=== PATIENT | male | born 1970 | race Caucasian/White ===

== ENCOUNTER → 2021-02-20 03:55 | Outpatient (CLI) | payer BC, SELFPAY ==
[2021-02-20 20:06] LABS: SARS-CoV-2 RNA PCR Negative
== END ==
PROVIDERS: PCP Family Medicine; Visit Provider Internal Medicine Gastroenterology
DX: Z01.812 Encounter for preprocedural laboratory examination (principal); Z20.822 Contact with and (suspected) exposure to COVID-19
CPT/HCPCS: C9803; U0003; U0005

== ENCOUNTER 2021-02-23 01:51 | Day surgery (SDC) | payer BC, SELFPAY ==
[2021-02-14 11:59] VITALS: BMI 29.7
[2021-02-23 06:38] VITALS: BP 145/97; PULSE 61; RESP 18; TEMP 35.7; O2SAT 100; BMI 27.6
[2021-02-23] MEDS: LACTATED RINGERS 1,000 ML 150 ML IV CONT (06:52)
--- NOTE | 2021-02-23 07:51 | WPDANESEPPF ---
Anes - Initial Pre Proc Eval Procedure: Operation Date: 02/23/21 08:00 Proposed Procedures p Screening Colonoscopy - John Blandon MD Date/Time: 02/23/21 07:51 Surgeon: John Blandon MD Pre Op Diagnosis: neoplasm screening Patient Data Age: 50 Gender: M Height: 5 ft 7 in Weight: 80.1 kg Last Vital Signs Temp 96.3 F L 02/23/21 06:38 Pulse 61 02/23/21 06:38 Resp 18 02/23/21 06:38 BP 145/97 H 02/23/21 06:38 Pulse Ox 100 02/23/21 06:38 Allergies Allergy/AdvReac Type Severity Reaction Status Date / Time lisinopril Allergy Unknown cough Verified 02/23/21 06:37 Home Medications Medication Instructions Recorded Confirmed Type irbesartan 75 mg tablet 75 mg PO DAILY 11/02/19 02/23/21 History atorvastatin 10 mg tablet 10 mg PO DAILY #90 tablet 05/03/20 02/23/21 Rx sodium,potassium,mag sulfates 17.5 See Rx Instructions PO .COMPLEX 12/07/20 02/23/21 Rx gram-3.13 gram-1.6 gram oral soln #354 ml multivit with min-folic acid 1 tablet PO DAILY 02/14/21 02/23/21 History [Adult One Daily Multivitamin] Patient hx anesthesia problems: none Family hx anesthesia problems: none PMFSH Past Medical History Medical History (Updated 02/23/21 @ 07:51 by Kyree Villa MD) Essential (primary) hypertension Mixed hyperlipidemia Surgical History Surgical History H/O hernia repair (~2014) H/O vasectomy Family History Family History Sibling Hypertension Father Family history of cardiovascular disease Hypertension Family history of elevated blood lipids Carcinoma of colon Mother Family history of cardiovascular disease Hypertension Family history of elevated blood lipids Family history of malignant neoplasm of thyroid Grandparent Diabetes mellitus Family history of mental disorder Social History Social History Smoking status: Never smoker Alcohol intake: current Drinks per week: 12 Living arrangements: with family Spiritual care concerns: No Anes - Eval Final PreProcedure Day of Procedure 02/23/21 07:51 Patient weight: overweight Heart: regular rate and rhythm Lungs: clear to auscultation Airway: Mallampati scale class II Neurological: alert and oriented Last oral intake: >/= 8 hours ASA classification: II Emergent: no Anesthetic plan: proceed Anesthesia type and monitoring: general GIVS and standard monitoring Informed Consent: The patient's anesthetic plan and its attendant risks and benefits were discussed with the patient/family/POA. Questions were solicited and answers provided to the satisfaction of the patient/family/POA.
--- NOTE | 2021-02-23 07:57 | PM.HPGS ---
History of Present Illness History of Present Illness Consent: Risks, benefits, and alternatives have been discussed and questions answered. Patient agrees to proceed with procedure. Chief complaint: neoplasm screening Narrative: Jeffry Burr is a 50 year old male here for first screening colonoscopy Review of Systems Constitutional: Constitutional: Denies headache(s) and Denies weakness Eyes: Eyes: Denies blurry vision ENT: Reports Normal hearing present, Denies headache(s) and Denies neck pain Cardiovascular: Cardiovascular: Denies chest pain and Denies dyspnea Respiratory: Respiratory: Denies dyspnea Gastrointestinal: Gastrointestinal: Reports no additional gastrointestinal complaints Genitourinary: Genitourinary: Denies dysuria Musculoskeletal: Musculoskeletal: Denies neck pain Integumentary/Breasts: Skin/Breast: Denies dry skin Neurologic: Reports Normal hearing present, Denies headache(s) and Denies weakness Psychiatric: Psychiatric: Denies anxiety Endocrine: Endocrine: Denies change in body appearance Hematologic/Lymphatic: Hematologic/Lymphatic: Denies easy bleeding Allergic/Immunologic: Allergic/Immunologic: Denies urticaria PMF Past Medical History Medical History (Updated 02/23/21 @ 07:51 by Kyree Villa MD) Essential (primary) hypertension Mixed hyperlipidemia Surgical History Surgical History H/O hernia repair (~2014) H/O vasectomy Family History Family History Sibling Hypertension Father Family history of cardiovascular disease Hypertension Family history of elevated blood lipids Carcinoma of colon Mother Family history of cardiovascular disease Hypertension Family history of elevated blood lipids Family history of malignant neoplasm of thyroid Grandparent Diabetes mellitus Family history of mental disorder Social History Social History Smoking status: Never smoker Alcohol intake: current Drinks per week: 12 Living arrangements: with family Spiritual care concerns: No Meds Home Medications and Allergies Home Medications Medication Instructions Recorded Confirmed Type irbesartan 75 mg tablet 75 mg PO DAILY 11/02/19 02/23/21 History atorvastatin 10 mg tablet 10 mg PO DAILY #90 tablet 05/03/20 02/23/21 Rx sodium,potassium,mag sulfates 17.5 See Rx Instructions PO .COMPLEX 03/04/21 05/21/21 Rx gram-3.13 gram-1.6 gram oral soln #354 ml multivit with min-folic acid 1 tablet PO DAILY 02/14/21 02/23/21 History [Adult One Daily Multivitamin] Allergies Allergy/AdvReac Type Severity Reaction Status Date / Time lisinopril Allergy Unknown cough Verified 02/23/21 06:37 Vital Signs Vital Signs - 24 hr 02/23/21 06:38 Temperature 96.3 F L Pulse Rate 61 Respiratory Rate 18 Blood Pressure 145/97 H Pulse Oximetry 100 Exam Const: General: comfortable and no acute distress HENMT: General nose exam: Normal nares present Eyes: General: appearance normal, both eyes and all related structures Neck: Neck: no JVD Resp: Auscultation: clear to auscultation bilaterally Cardio: Rate: regular rate Rhythm: regular rhythm GI: Inspection: non-distended GI Palp: Yes Soft to palpation Skin: General skin exam: normal color Neuro: General: gait normal Speech: normal speech Extrem: General: normal to inspection Psych: Mental Status: mental status grossly normal Assessment and Plan Assessment and plan (1) Screening for colon cancer: Code(s): Z12.11 - Encounter for screening for malignant neoplasm of colon Status: Acute Assessment and Plan: colonoscopy
[2021-02-23 08:09] VITALS: BP 89/55; PULSE 63; RESP 18; O2SAT 100
[2021-02-23 08:19] VITALS: BP 112/68; PULSE 62; RESP 18; O2SAT 100
[2021-02-23 08:29] VITALS: BP 122/80; PULSE 62; RESP 16; O2SAT 100
== END 2021-02-23 08:40 | disposition home or self-care (01) ==
PROVIDERS: PCP Family Medicine; Visit Provider Internal Medicine Gastroenterology
PROC: 0DJD8ZZ Inspection of Lower Intestinal Tract, Via Natural or Artificial Opening Endoscopic (ICD-10-PCS; CPT 45378; principal; 2021-02-23 08:00)
DX: Z12.11 Encounter for screening for malignant neoplasm of colon (principal); K64.8 Other hemorrhoids; I10 Essential (primary) hypertension; E78.2 Mixed hyperlipidemia
CPT/HCPCS: 45378; J2001; J2704; J7120

== ENCOUNTER 2022-03-15 16:48 | Emergency (ER) | payer OTHER, SELFPAY ==
--- NOTE | 2022-03-15 16:51 | ED.DENTAL ---
HPI - Dental/Oral General Chief complaint: Dental/Oral Stated complaint: toothache Time Seen by Provider: 03/15/22 17:00 Source: patient Mode of arrival: ambulatory Limitations: no limitations History of Present Illness HPI Narrative: Mr. Burr is a 51-year-old male patient presenting to the clinic today with complaints of a tooth ache. He reports that this has been going on for approximately 1 week. He reports that he had a root canal completed a couple weeks ago and is waiting to have it finished and was supposed to have it finished last week however the dentist canceled on him and he is rescheduled for next week. He states that the swelling has occurred over the last week and he thinks he has a total abscess to the right upper second back molar. Has swelling over the left maxillary sinuses. He denies any fever or chills. Related Data Allergies Allergy/AdvReac Type Severity Reaction Status Date / Time lisinopril AdvReac Unknown cough Verified 03/15/22 17:21 Review of Systems Review of Systems: Pertinent positives per HPI. Patient denies any fever, chills, rash, headache, visual changes, dizziness, cough, runny nose, sore throat, shortness of breath, chest pain, palpitations, nausea, vomiting, diarrhea, constipation, abdominal pain, or any urinary issues. [facility] Past Medical History Medical History Essential (primary) hypertension Mixed hyperlipidemia Surgical History Surgical History H/O hernia repair (~2014) H/O vasectomy Family History Family History Sibling Hypertension Father Family history of cardiovascular disease Hypertension Family history of elevated blood lipids Carcinoma of colon Mother Family history of cardiovascular disease Hypertension Family history of elevated blood lipids Family history of malignant neoplasm of thyroid Grandparent Diabetes mellitus Family history of mental disorder Social History Social History Alcohol intake: current Drinks per week: 12 Spiritual care concerns: No Comments At the time of my signature, I reviewed and agree with the nursing past medical, surgical, social, and family history. There is no relevant family history pertinent to the patient complaint. Exam Narrative: General: Well-developed, well nourished, in no apparent distress Head: Normocephalic, atraumatic Eyes: Pupils equally round and reactive to light bilaterally, EOM intact, sclera and conjunctive clear, no discharge, lids normal Ears: TMs intact and clear, ear canals clear, no drainage, grossly hearing normal. Nose: Nares patent, no discharge, no inflammation, no sinus tenderness. Mouth: Oropharynx without lesions or masses, poor dentition, MMM. Swelling noted to the gums near the second posterior left upper molar. Tenderness, swelling, and redness to palpation over left maxillary sinuses. Neck: Supple, trachea midline, no enlargement of anterior or posterior cervical nodes, no thyroid masses or goiter palpable. Cardio: Regular rate and rhythm, s1 and s2 normal, no murmur appreciated. Resp: Clear to auscultation bilaterally anteriorly and posteriorly, no rhonchi, rales, wheezing or rubs Course Course Emergency Course: Portions of this record may have been created with voice recognition software. Level of Care: Express Care Visit Vital Signs Vital signs: Vital Signs Temperature 37.5 C 03/15/22 17:03 Pulse Rate 77 03/15/22 17:03 Respiratory Rate 18 03/15/22 17:03 Blood Pressure 141/85 H 03/15/22 17:03 Pulse Oximetry 99 03/15/22 17:03 Oxygen Delivery Room Air 03/15/22 17:03 Temperature 37.5 C 03/15/22 17:03 Pulse Rate 77 03/15/22 17:03 Respiratory Rate 18 03/15/22 17:03 Blood Pressure 141/85 H
[2022-03-15 17:03] VITALS: BP 141/85; PULSE 77; RESP 18; TEMP 37.5; O2SAT 99
== END 2022-03-15 17:26 | disposition home or self-care (01) ==
PROVIDERS: Emergency Provider Nurse Practitioner Family; PCP Family Medicine
DX: K04.7 Periapical abscess without sinus (principal); I10 Essential (primary) hypertension; E78.2 Mixed hyperlipidemia
CPT/HCPCS: 99213; G0463

== ENCOUNTER 2022-12-03 17:32 | Emergency (ER) | payer OTHER, SELFPAY ==
[2022-12-03 17:52] VITALS: BP 140/84; PULSE 60; RESP 18; TEMP 36.3; O2SAT 98
--- NOTE | 2022-12-03 18:23 | ED.GENADULT ---
HPI - General Adult General Chief complaint: Animal Bite Stated complaint: dog bite/rt hand Time Seen by Provider: 12/03/22 18:10 Source: patient, RN notes reviewed and old records reviewed Mode of arrival: ambulatory Limitations: no limitations History of Present Illness HPI narrative: 52 year old male presents to [facility] care with complaints of dog bite to the dorsal aspect of his right hand near the base of his middle finger which is 2cm long and is minimally subcutaneous. Patient states his Chihuahua bit him when he was trying to give him a bath. Patient reports that his tetanus is up to date and dog's vaccinations are up to date. Patient reports that he washed wound with soap and water prior to arrival. MD complaint: dog bite right hand Onset (ago): hour(s) (1500 today) Location: right and upper extremity (dorsal hand) Severity scale (1-10): 2 Quality: aching Treatments prior to arrival: other (soap and water) Related Data Allergies Allergy/AdvReac Type Severity Reaction Status Date / Time lisinopril AdvReac Mild cough Verified 12/03/22 17:43 Review of Systems Review of Systems: CONSTITUTIONAL: Denies fever, chills, or sweats. EYES: Denies visual changes, redness, or discharge. ENT: Denies rhinorrhea, congestion, sore throat, or otalgia. CARDIOVASCULAR: Denies chest pain, palpitations, or edema. RESPIRATORY: Denies cough or dyspnea. GASTROINTESTINAL: Denies abdominal pain, nausea, vomiting, or diarrhea. GENITOURINARY: Denies dysuria or hematuria. SKIN: Denies rash or itching. Positive for laceration to the dorsal aspect of right hand from dog bite near base of his middle finger. MUSCULOSKELETAL: Denies back pain, joint pain, or myalgia. NEUROLOGIC: Denies headache, numbness, or weakness. PSYCHIATRIC: Denies anxiety or depression. All systems reviewed & are unremarkable except as noted in HPI and below PMFSH Past Medical History Medical History Essential (primary) hypertension Mixed hyperlipidemia Surgical History Surgical History H/O hernia repair (~2014) H/O vasectomy Family History Family History Sibling Hypertension Father Family history of cardiovascular disease Hypertension Family history of elevated blood lipids Carcinoma of colon Mother Family history of cardiovascular disease Hypertension Family history of elevated blood lipids Family history of malignant neoplasm of thyroid Grandparent Diabetes mellitus Family history of mental disorder Social History Social History (Updated 12/04/22 @ 10:03 by Caridad Gonzalez NP) Smoking status: Never smoker Alcohol intake: current Drinks per week: 12 Substance use type: does not use Living arrangements: with family Gender identity (if verbalized by the patient): Male Spiritual care concerns: No Comments At time of signature, agree with nursing past medical, surgical, social and family history. There is no relevant family history pertinent to the presenting complaint Exam Narrative: GENERAL: Well-appearing, well-nourished, and in no acute distress. HEAD: Normocephalic, atraumatic. EYES: PERRLA and EOMI. ENT: Nares clear, no rhinorrhea or epistaxis. Mucous membranes moist.TM's normal with good light reflex, throat pink with no lesions or exudates or swelling NECK: Supple. no lymphadenopathy CHEST: Clear to auscultation. No respiratory distress.SAO2 98% on room air HEART: Regular rate and rhythm. No murmur heard. Normal peripheral pulses. ABDOMEN: Soft, nontender, nondistended, normal active bowel sounds. EXTREMITIES: Normal range of motion. No edema. SKIN: Warm, dry, no rash.2cm laceration to dorsal aspect of his right hand near base of middle finger, no bleeding is minimally subcutaneous, Patient has full mobility of hand and fingers,strong pulse to right wrist, no tinglin
== END 2022-12-03 18:40 | disposition home or self-care (01) ==
PROVIDERS: Emergency Provider Registered Nurse; PCP Family Medicine
DX: S61.451A Open bite of right hand, initial encounter (principal); E78.2 Mixed hyperlipidemia; I10 Essential (primary) hypertension; W54.0XXA Bitten by dog, initial encounter
CPT/HCPCS: 99213; G0463